=== PATIENT | female | born 1965 | race Two or more races ===

== ENCOUNTER 2025-03-13 11:50 | Day surgery (SDC) | payer MEDICAID, SELFPAY ==
[2025-03-12 13:43] VITALS: BMI 34.3
[2025-03-13] VITALS (11 sets, daily range): BP systolic 113–144; BP diastolic 72–86; PULSE 60–80; RESP 16–20; TEMP 36.4; O2SAT 94–100; BMI 34.3
[2025-03-13] MEDS: RINGERS LACTATED 1000 ML 1,000 ML 100 ML IV (13:14)
[2025-03-13] MEDS: fentaNYL CIT INJ 50 mCg/ML AMP 2ML (ASD USE ONLY) IVP (13:22)
[2025-03-13] MEDS: MIDAZOLAM INJ 1 MG/ML VIAL 2 ML (ASD USE ONLY) 2 MG IVP (13:24)
== END 2025-03-13 14:35 | disposition home or self-care (01) ==
PROVIDERS: PCP Family Medicine; Referring Provider Surgery; Visit Provider Surgery
PROC: 0DBE8ZX Excision of Large Intestine, Via Natural or Artificial Opening Endoscopic, Diagnostic (ICD-10-PCS; CPT 45380; principal; 2025-03-13 13:00)
DX: Z12.11 Encounter for screening for malignant neoplasm of colon (principal); Z86.0100 Personal history of colon polyps, unspecified; Z85.038 Personal history of other malignant neoplasm of large intestine; K57.30 Diverticulosis of large intestine without perforation or abscess without bleeding
CPT/HCPCS: 45378; J2250; J3010; J7120